=== PATIENT | female | born 1995 ===

== ENCOUNTER 2017-11-22 15:45 | Emergency (ER) | payer OTHER ==
[2017-11-22 15:59] VITALS: BP 132/82; PULSE 108; RESP 16; TEMP 98.7; O2SAT 98
--- NOTE | 2017-11-22 16:59 | ED PDOC ---
HPI: Female Pain Time Seen by Provider: 11/22/17 16:43 Chief Complaint (Nursing): Abnormal Skin Integrity History Per: Patient Additional Complaint(s): Pruritic rash to outer vaginal area and b/l groin x 1 week. States last week she finished a course of Augmentin to tonsillitis. Denies fever, dysuria, hematuria, vaginal discharge, pain, hematuria. Past Medical History Reviewed: Historical Data, Nursing Documentation, Vital Signs Vital Signs: Last Vital Signs Temp 98.7 F 11/22/17 15:56 Pulse 108 H 11/22/17 15:56 Resp 16 11/22/17 15:56 BP 132/82 11/22/17 15:56 Pulse Ox 98 11/22/17 15:56 - Family History Family History: States: No Known Family Hx - Home Medications Home Medications: Ambulatory Orders Medication Instructions Recorded Clotrimazole 1% Vaginal [Lotrimin 1 applic VG HS #1 tube 11/22/17 1% Vaginal] Fluconazole [Diflucan] 150 mg PO ONCE #1 tab 11/22/17 - Allergies Allergies/Adverse Reactions: Allergies Allergy/AdvReac Type Severity Reaction Status Date / Time No Known Allergies Allergy Verified 11/22/17 15:59 Review of Systems ROS Statement: Except As Marked, All Systems Reviewed And Found Negative Skin: Positive for: Rash Physical Exam - Physical Exam Appears: Positive for: Well, Non-toxic, No Acute Distress Skin: Positive for: Normal Color, Warm. Negative for: Rash Eye Exam: Positive for: Normal appearance Gastrointestinal/Abdominal: Positive for: Normal Exam, Soft. 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 Negative for: Discharge, Mass, Ulcers Neurologic/Psych: Positive for: Alert, Oriented (x3) - Laboratory Results Urine POC: Negative - ECG O2 Sat by Pulse Oximetry: 98 Disposition - Clinical Impression Clinical Impression: Vaginitis - Patient ED Disposition Is Patient to be Admitted: No - Disposition Referrals: [facility] [Outside] Disposition: Routine/Home Disposition Time: 16:58 Condition: STABLE Additional Instructions: DELBERT HERMAN, thank you for letting us take care of you today. Your provider was Luis Manuel Herrera MD and you were treated for GROIN PAIN, GROIN IRRITATION. The emergency medical care you received today was directed at your acute symptoms. If you were prescribed any medication, please fill it and take as directed. It may take several days for your symptoms to resolve. Return to the Emergency Department if your symptoms worsen, do not improve, or if you have any other problems. Please contact your doctor or call one of the physicians/clinics you have been referred to that are listed on the Patient Visit Information form that is included in your discharge packet. Bring any paperwork you were given at discharge with you along with any medications you are taking to your follow up visit. Our treatment cannot replace ongoing medical care by a primary care provider outside of the emergency department. Thank you for allowing the [facility] team to be part of your care today. If you had an X-Ray or CT scan: A Radiologist will review the ED reading if any change in treatment is needed we will contact you. If you had a blood, urine, or wound culture: It will take several days for the results, if any change in treatment is needed we will contact you. If you had an STI test: It will take 48 hours for the results. Please call after 1 week if you have not heard back. Prescriptions: Clotrimazole 1% Vaginal [Lotrimin 1% Vaginal] 1 applic VG HS #1 tube Fluconazole [Diflucan] 150 mg PO ONCE #1 tab Instructions: Vaginitis Forms: Twist (Turkish)
== END 2017-11-22 17:10 | disposition home or self-care (01) ==
LOC: H.ER 15:45
DX: N76.0 Acute vaginitis (principal)